=== PATIENT | female | born 1950 | race Hispanic/Latino ===

== ENCOUNTER 2020-06-01 00:45 | Emergency (ER) | payer MEDICARE ==
[~2020-06-01] VITALS: Ht 154.9 cm; Wt 61.2 kg
[2020-06-01] MEDS ORDERED: TETANUS/DIPHTHERIA TOX ADULT 0.5 ML SYR IM STA (01:07)
[2020-06-01] MEDS ORDERED: BACITRACIN ZINC 0.9GM TP ONE ×2 (01:15→01:25)
--- NOTE | 2020-06-01 01:19 | Emergency Department Note ---
History of Present Illnes History of Present Illness Chief Complaint: Extremity Trauma/Pain History of Present Illness This is a 69 year old female accidentally stripped and fell at home about 1 hour [employer], injured left eye brow (bruise), abrasion right knee and sprained right ankle. Past Medical History Diabetes, Hyperlipidemia Other Medical History NEUROPATHY Other Surgery RIGHT HIP FRACTURE 14' LEFT LEG FRACTURE 05' Historian: Patient Arrival Mode: Car Him Manager Required: No Onset (how long ago): hour(s) Radiation: Reports non-radiation Severity: moderate Onset quality: sudden Duration (how long): hour(s) (1 hour) Progression: unchanged Chronicity: new Relieving factors: none, rest Exacerbating factors: none, movement Associated symptoms: Reports denies other symptoms Treatments prior to arrival: other (cleaned her abrasion and covered with abx/band-aid) Past Medical/Family History Physician Review I have reviewed the patient's past medical and family history. Any updates have been documented here. Past Medical History Recent Fever: No Clinical Suspicion of Infectio: No New/Unexplained Change in Ment: No Past Medical History: Diabetes, Hyperlipedemia Other Medical History: NEUROPATHY Other Surgery: RIGHT HIP FRACTURE 14' LEFT LEG FRACTURE 05' Social History Smoking Cessation: Never Smoker Counseling Performed: No Alcohol Use: None Any Illegal Drug Use: No Physically hurt or threatened: No Other Any Pre-Existing Lines (PICC,: No Review of Systems Review of Systems Constitutional: Reports no symptoms EENTM: Reports no symptoms Cardiovascular: Reports no symptoms Respiratory: Reports no symptoms Gastrointestinal: Reports no symptoms Genitourinary: Reports no symptoms Musculoskeletal: Reports as per HPI Integumentary: Reports as per HPI Neurological: Reports no symptoms Psychological: Reports no symptoms Endocrine: Reports no symptoms Hematological/Lymphatic: Reports no symptoms Physical Exam Related Data Allergies: Coded Allergies: No Known Allergies (Unverified , 06/01/20) Triage Vital Signs Vital Signs Date Time Temp Pulse Resp B/P (MAP) Pulse Ox O2 Delivery O2 Flow Rate FiO2 06/01/20 00:55 97.8 90 18 141/74 98 Room Air Vital signs reviewed: Yes Physical Exam CONSTITUTIONAL Constitutional: Present well-developed, Present well-nourished HENT HENT: Present normocephalic, Present atraumatic, Present oropharynx c lear/moist, Present nose normal HENT L/R: Present left ext ear normal, Present right ext ear normal EYES Eyes: Reports PERRL, Reports conjunctivae normal NECK Neck: Present ROM normal PULMONARY Pulmonary: Present effort normal, Present breath sounds normal CARDIOVASCULAR Cardiovascular: Present regular rhythm, Present heart sounds normal, Present capillary refill normal, Present normal rate GASTROINTESTINAL Abdominal: Present soft, Present nontender, Present bowel sounds normal GENITOURINARY Genitourinary: Present exam deferred SKIN Skin: Present warm, Present dry, Present rash (abrasion 3 x 3 cm right knee, contusion left eye brow laterally, ) MUSCULOSKELETAL Musculoskeletal: Present ROM normal, Present tenderness (right knee, right ankle, swelling right ankle) NEUROLOGICAL Neurological: Present alert, Present oriented x 3, Present no gross motor or sensory deficits PSYCHOLOGICAL Psychological: Present mood/affect normal, Present judgement normal Exam - additional comments walking steady gaits Results Imaging Imaging results reviewed: Yes Procedures Laceration Laceration: Laceration 1 Site: lower extremity Side: right (right knee abrasion) Description: other (circular abrasion) Pre-repair: wound exposed Skin layer closed with: other (sterile strips) Technique: other (strile strips, covered with Coban) Assessment & Plan Medical Decision Making MDM sprain, contusion, fx Assessment & Plan Final Impression: (1) Acute pain due to trauma (2) Abrasion of right knee (3) Sprain of right knee (4) Sprain of right ankle (5) Contusion of left eyebrow Depart Disposition: HOME, SELF-CARE Last Vital Signs Date Time Temp Pulse Resp B/P (MAP) Pulse Ox O2 Delivery O2 Flow Rate FiO2 06/01/20 00:55 97.8 90 18 141/74 98 Room Air Physician Attestation Provider Attestation accidental fall KEEGAN THORNTON MD Jun 01, 2020 01:19
[2020-06-01] MEDS ORDERED: TETANUS/DIPHTHERIA TOX ADULT 0.5 ML SYR ONE (01:25)
--- NOTE | 2020-06-01 01:57 | Diagnostic Imaging Report ---
EXAMINATION: Head CT without contrast. HISTORY:Status post fall. COMPARISON:None. TECHNIQUE: Multidetector axial images were obtained from the foramen magnum to the vertex without contrast. The images were reconstructed using brain and bone algorithms. Thin section brain images were reformatted into coronal and sagittal planes. Dose modulation, iterative reconstruction, and/or weight based adjustment of the mA/kV was utilized to reduce the radiation dose to as low as reasonably achievable. Intravenous contrast: None IMAGE QUALITY: Acceptable. FINDINGS: Skull/scalp: No lytic or blastic. lesions. No surgical changes. Parenchyma: Nonspecific few, scattered supratentorial white matter hypodensity are likely related to small vessel ischemic changes. Focal punctate hypodensity in right lentiform nucleus may either represent chronic lacunar infarct or prominent perivascular space. No acute hemorrhage, mass or acute major vascular territorial infarct. Arteries: No density suggestive of thrombosis. Dural sinuses: No abnormal density suggestive of thrombosis. Ventricles: No hydrocephalus or displacement. Extra-axial spaces: No abnormal density. Brain volume: Normal for age. Craniocervical junction: No mass, Chiari malformation, or basilar invagination. Sella: Mildly enlarged, CSF flow partial empty sella. Paranasal/mastoid sinuses: Imaged portions unremarkable. IMPRESSION: No acute intracranial abnormality. Mild supratentorial white matter microvascular ischemic changes. Chronic lacunar infarct vs prominent perivascular space in right lentiform nucleus. Signed by: Dr. Sonja Gong M.D. on 06/01/2020 1:53 AM
--- NOTE | 2020-06-01 02:00 | Diagnostic Imaging Report ---
History:Fall. Comparison studies: None Technique: Axial images were obtained through the maxillofacial region. Coronal and sagittal images reconstructed from the axial data. Dose modulation, iterative reconstruction, and/or weight based adjustment of the mA/kV was utilized to reduce the radiation dose to as low as reasonably achievable. Intravenous contrast: None Findings: Soft tissues: No abnormalities. Bones: No fractures or bony abnormalities. Orbits: Globes: Intact Extra or intraconal abnormalities: None. Paranasal sinuses: Clear IMPRESSION: No acute abnormality. Signed by: Dr. Sonja Gong M.D. on 06/01/2020 1:56 AM
--- NOTE | 2020-06-01 02:07 | Diagnostic Imaging Report ---
ANKLE RIGHT - 2 VIEWS RT - HOPD - HISTORY: Pain. Fall COMPARISON: None available. FINDINGS: Bones: No acute displaced fracture. Osseous alignment is within normal limits. Bones are demineralized. Joints: The joint spaces are well-maintained. Soft tissues: Vascular calcifications. IMPRESSION: No acute fracture or dislocation of the right ankle. Signed by: Ramón Reyna MD on 06/01/2020 2:03 AM
--- NOTE | 2020-06-01 02:08 | Diagnostic Imaging Report ---
KNEE 2VIEW RT - 2 views HISTORY: Pain. Fall COMPARISON: None available. FINDINGS: Bones: No acute displaced fracture. Osseous alignment is within normal limits. Bones are demineralized. Joints: The joint spaces are well-maintained. No suprapatellar joint effusion. Soft tissues: Vascular calcifications. IMPRESSION: No acute fracture or dislocation of the right knee. Signed by: Ramón Reyna MD on 06/01/2020 2:05 AM
== END 2020-06-01 02:25 | disposition home or self-care (01) ==
LOC: FSED 01:10
DX: S00.12XA Contusion of left eyelid and periocular area, initial encounter (principal); S80.211A Abrasion, right knee, initial encounter; S83.91XA Sprain of unspecified site of right knee, initial encounter; S93.401A Sprain of unspecified ligament of right ankle, initial encounter; W01.0XXA Fall on same level from slipping, tripping and stumbling without subsequent striking against object, initial encounter; Y93.01 Activity, walking, marching and hiking; Y92.008 Other place in unspecified non-institutional (private) residence as the place of occurrence of the external cause; E11.40 Type 2 diabetes mellitus with diabetic neuropathy, unspecified; E78.5 Hyperlipidemia, unspecified
CPT/HCPCS: 70450; 70486; 90471; 90714; 99283